=== PATIENT | male | born 1935 | race Caucasian/White ===

== ENCOUNTER 2018-11-01 22:41 | Inpatient (IN) ==
[2018-11-01] MEDS ORDERED: FUROSEMIDE 100 MG/10 ML VIAL IV STA (23:25)
[2018-11-02 00:07] LABS: Basophils % 0.3 % (0.0-0.8); Eosinophils # 0.2 10*3/uL (0.0-0.87); Eosinophils % 3.9 % (0.00-10.9); Hematocrit 31.8 VOL% (42.0-52.0); Hemoglobin 9.7 GM/DL (14.0-18.0); Immature Granulocytes % 0.5 %; Immature Granulocytes Absolute 0.03 #; Lymphocytes # 0.9 10*3/uL (1.4-4.0); Mean Corpuscular HGB Conc 30.5 GM/DL (32-36); Mean Corpuscular Hemoglobin 28 PG (27-34); Mean Corpuscular Volume 91.6 FL (87-102); Monocytes # 0.8 10*3/uL (0.11-0.8); Monocytes % 13.4 % (1.7-12.7); Neutrophils # 4.1 10*3/uL (1.4-7.4); Neutrophils % 66.9 % (38.7-73.9); Platelet Count 170 T/CUMM (130-400); Red Blood Count 3.47 MC/CUMM (3.8-5.5); Red Cell Distribution Width 14.7 % (9.3-17.3); White Blood Count 6.2 T/CUMM (4-12)
[2018-11-02 00:17] LABS: INR 1.2; PT Patient Result 12.7 SECS; Partial Thromboplastin Time 25.8 SECS (0-40)
[2018-11-02 00:25] LABS: Albumin 3.5 G/DL (3.4-5.0); Bilirubin,Total 0.7 MG/DL (0.2-1.0); Calcium 8.6 MG/DL (8.5-10.1); Osmolality,Calculated 278.5 MOS/KG (273-304); Potassium 3.8 MMOL/L (3.5-5.1); Total Protein 6.4 G/DL (6.4-8.3)
[2018-11-02] MEDS ORDERED: MAGNESIUM SULF RIDER 2 GM in PREMIX 1 EACH IV PRN (01:40)
[2018-11-02] MEDS ORDERED: ONDANSETRON 4 MG/2 ML VIAL IV PRN (01:40)
[2018-11-02] MEDS ORDERED: MAGNESIUM SULF RIDER 4 GM in PREMIX 1 EACH IV PRN (01:40)
[2018-11-02 06:02] LABS: Basophils % 0.4 % (0.0-0.8); Eosinophils # 0.2 10*3/uL (0.0-0.87); Hematocrit 30.5 VOL% (42.0-52.0); Hemoglobin 9.2 GM/DL (14.0-18.0); Immature Granulocytes % 0.4 %; Immature Granulocytes Absolute 0.02 #; Lymphocytes # 0.9 10*3/uL (1.4-4.0); Lymphocytes % 15.7 % (21.2-54.2); Mean Corpuscular HGB Conc 30.2 GM/DL (32-36); Mean Corpuscular Hemoglobin 28 PG (27-34); Monocytes # 0.7 10*3/uL (0.11-0.8); Monocytes % 13.2 % (1.7-12.7); Neutrophils # 3.6 10*3/uL (1.4-7.4); Neutrophils % 66.3 % (38.7-73.9); Platelet Count 185 T/CUMM (130-400); Red Blood Count 3.35 MC/CUMM (3.8-5.5); Red Cell Distribution Width 14.8 % (9.3-17.3); White Blood Count 5.5 T/CUMM (4-12)
[2018-11-02 06:28] LABS: Albumin 3.1 G/DL (3.4-5.0); Calcium 8.3 MG/DL (8.5-10.1); Osmolality,Calculated 279.4 MOS/KG (273-304); Potassium 3.4 MMOL/L (3.5-5.1)
[2018-11-02] MEDS: OLMESARTAN 20 MG TABLET PO SCH (08:29)
[2018-11-02] MEDS: chlordiazePOXIDE 25 MG CAPSULE PO SCH ×2 (08:29→21:36)
[2018-11-02] MEDS: MULTIVITAMIN (CENTRUM) TABLET PO SCH (08:29)
[2018-11-02] MEDS: MAGNESIUM CHLORIDE 64 MG TABLET PO SCH ×2 (08:29→21:36)
[2018-11-02] MEDS: TAMSULOSIN 0.4 MG CAPSULE PO SCH (08:30)
[2018-11-02] MEDS: DUTASTERIDE 0.5 MG CAPSULE PO SCH (08:30)
[2018-11-02] MEDS: PANTOPRAZOLE 40 MG TABLET PO SCH (08:30)
[2018-11-02] MEDS: ASCORBIC ACID 500 MG TABLET PO SCH ×2 (08:30→21:36)
[2018-11-02] MEDS: CARVEDILOL 12.5 MG TABLET PO SCH ×2 (08:30→16:43)
[2018-11-02] MEDS: ESCITALOPRAM 10 MG TABLET PO SCH (08:30)
[2018-11-02] MEDS: FUROSEMIDE 40 MG/4 ML VIAL IV SCH ×2 (08:30→16:43)
[2018-11-02] MEDS: CHOLECALCIFEROL 5,000 UNIT TABLET PO SCH (08:30)
[2018-11-02] MEDS ORDERED: POTASSIUM CHLORIDE 20 MEQ TABLET PO SCH (09:00)
[2018-11-02] MEDS ORDERED: APIXABAN 5 MG TABLET PO SCH (09:00)
[2018-11-02] MEDS ORDERED: CLOPIDOGREL 75 MG TABLET PO SCH (09:00)
[2018-11-02] MEDS: SPIRONOLACTONE 25 MG TABLET PO SCH (16:43)
[2018-11-02] MEDS: ATORVASTATIN 40 MG TABLET PO SCH (21:36)
[2018-11-03 07:47] LABS: Calcium 8.2 MG/DL (8.5-10.1); Osmolality,Calculated 277.4 MOS/KG (273-304); Potassium 3.4 MMOL/L (3.5-5.1)
[2018-11-03] MEDS: CHOLECALCIFEROL 5,000 UNIT TABLET PO SCH (10:03)
[2018-11-03] MEDS: SPIRONOLACTONE 25 MG TABLET PO SCH (10:03)
[2018-11-03] MEDS: OLMESARTAN 20 MG TABLET PO SCH (10:03)
[2018-11-03] MEDS: ESCITALOPRAM 10 MG TABLET PO SCH (10:03)
[2018-11-03] MEDS: FUROSEMIDE 40 MG/4 ML VIAL IV SCH ×2 (10:04→17:43)
[2018-11-03] MEDS: TAMSULOSIN 0.4 MG CAPSULE PO SCH (10:04)
[2018-11-03] MEDS: POTASSIUM CHLORIDE 20 MEQ TABLET PO PRN ×3 (10:04→17:43)
[2018-11-03] MEDS: MULTIVITAMIN (CENTRUM) TABLET PO SCH (10:04)
[2018-11-03] MEDS: CARVEDILOL 12.5 MG TABLET PO SCH ×2 (10:04→17:42)
[2018-11-03] MEDS: chlordiazePOXIDE 25 MG CAPSULE PO SCH ×2 (10:04→21:38)
[2018-11-03] MEDS: ASCORBIC ACID 500 MG TABLET PO SCH ×2 (10:04→21:39)
[2018-11-03] MEDS: PANTOPRAZOLE 40 MG TABLET PO SCH (10:04)
[2018-11-03] MEDS: MAGNESIUM CHLORIDE 64 MG TABLET PO SCH ×2 (10:04→21:38)
[2018-11-03] MEDS: DUTASTERIDE 0.5 MG CAPSULE PO SCH (10:04)
[2018-11-03 14:33] LABS: Apearance,Urine Slightly Hazy (Clear); Bilirubin,Urine Negative (Negative); Blood, Urine Large mg/dL (Negative); Glucose,Urine (UA) Negative (Negative); Ketones,Urine Negative (Negative); Mucus,Urine Occasional /LPF (Occasional); Nitrite,Urine Negative (Negative); Protein,Urine Negative; RBC,Urine 370 /HPF (0-4); Urine Color Straw (Yellow); Urine Specific Gravity 1.004 (1.001-1.035); Urine Urobilinogen < 2.0 EU/DL (0.2-1.0); WBC,Urine 5 /HPF (0-6)
[2018-11-03] MEDS ORDERED: diphenhydrAMINE CAP 25 MG CAPSULE PO SCH (20:00)
[2018-11-03] MEDS ORDERED: diphenhydrAMINE CAP 25 MG CAPSULE PO PRN ×2 (21:26→21:28)
[2018-11-03] MEDS: ATORVASTATIN 40 MG TABLET PO SCH (21:39)
[2018-11-04 05:05] LABS: Basophils % 0.4 % (0.0-0.8); Eosinophils # 0.3 10*3/uL (0.0-0.87); Eosinophils % 5.3 % (0.00-10.9); Hematocrit 29.4 VOL% (42.0-52.0); Hemoglobin 8.8 GM/DL (14.0-18.0); Immature Granulocytes % 0.5 %; Immature Granulocytes Absolute 0.03 #; Mean Corpuscular HGB Conc 29.9 GM/DL (32-36); Mean Corpuscular Hemoglobin 28 PG (27-34); Mean Corpuscular Volume 92.5 FL (87-102); Monocytes # 0.8 10*3/uL (0.11-0.8); Monocytes % 14.4 % (1.7-12.7); Neutrophils # 3.6 10*3/uL (1.4-7.4); Neutrophils % 62.4 % (38.7-73.9); Platelet Count 163 T/CUMM (130-400); Red Blood Count 3.18 MC/CUMM (3.8-5.5); Red Cell Distribution Width 14.6 % (9.3-17.3); White Blood Count 5.7 T/CUMM (4-12)
[2018-11-04 05:24] LABS: Calcium 7.9 MG/DL (8.5-10.1); Osmolality,Calculated 277.5 MOS/KG (273-304); Potassium 3.6 MMOL/L (3.5-5.1)
[2018-11-04 05:25] LABS: Calcium 8.1 MG/DL (8.5-10.1); Osmolality,Calculated 280.3 MOS/KG (273-304); Potassium 3.6 MMOL/L (3.5-5.1)
[2018-11-04] MEDS: ESCITALOPRAM 10 MG TABLET PO SCH (09:43)
[2018-11-04] MEDS: PANTOPRAZOLE 40 MG TABLET PO SCH (09:43)
[2018-11-04] MEDS: chlordiazePOXIDE 25 MG CAPSULE PO SCH ×2 (09:43→20:40)
[2018-11-04] MEDS: MULTIVITAMIN (CENTRUM) TABLET PO SCH (09:43)
[2018-11-04] MEDS: MAGNESIUM CHLORIDE 64 MG TABLET PO SCH ×2 (09:43→20:40)
[2018-11-04] MEDS: DUTASTERIDE 0.5 MG CAPSULE PO SCH (09:43)
[2018-11-04] MEDS: OLMESARTAN 20 MG TABLET PO SCH (09:43)
[2018-11-04] MEDS: ASCORBIC ACID 500 MG TABLET PO SCH ×2 (09:43→20:39)
[2018-11-04] MEDS: CHOLECALCIFEROL 5,000 UNIT TABLET PO SCH (09:43)
[2018-11-04] MEDS: SPIRONOLACTONE 25 MG TABLET PO SCH (09:43)
[2018-11-04] MEDS: TAMSULOSIN 0.4 MG CAPSULE PO SCH ×2 (09:44→20:39)
[2018-11-04] MEDS: CARVEDILOL 12.5 MG TABLET PO SCH ×2 (09:44→17:10)
[2018-11-04] MEDS: FUROSEMIDE 40 MG/4 ML VIAL IV SCH ×2 (09:44→17:11)
[2018-11-04] MEDS: NYSTATIN POWDER 15 GM BOTTLE TOP SCH ×2 (13:53→20:40)
[2018-11-04] MEDS: HYDROCORTISONE 1% CREAM 28 GM TUBE TOP PRN ×2 (13:53→20:40)
[2018-11-04] MEDS: ATORVASTATIN 40 MG TABLET PO SCH (20:39)
[2018-11-05 02:57] LABS: Basophils % 0.2 % (0.0-0.8); Eosinophils # 0.4 10*3/uL (0.0-0.87); Eosinophils % 6.3 % (0.00-10.9); Hematocrit 29.8 VOL% (42.0-52.0); Hemoglobin 8.9 GM/DL (14.0-18.0); Immature Granulocytes % 0.5 %; Immature Granulocytes Absolute 0.03 #; Lymphocytes # 0.9 10*3/uL (1.4-4.0); Lymphocytes % 15.2 % (21.2-54.2); Mean Corpuscular HGB Conc 29.9 GM/DL (32-36); Mean Corpuscular Hemoglobin 27 PG (27-34); Mean Corpuscular Volume 91.4 FL (87-102); Mean Platelet Volume 9.8 FL (9.6-12.0); Monocytes # 0.8 10*3/uL (0.11-0.8); Monocytes % 12.8 % (1.7-12.7); Neutrophils # 3.8 10*3/uL (1.4-7.4); Platelet Count 172 T/CUMM (130-400); Red Blood Count 3.26 MC/CUMM (3.8-5.5); Red Cell Distribution Width 14.5 % (9.3-17.3); White Blood Count 5.8 T/CUMM (4-12)
[2018-11-05 03:27] LABS: Calcium 8.2 MG/DL (8.5-10.1); Osmolality,Calculated 276.7 MOS/KG (273-304); Potassium 3.4 MMOL/L (3.5-5.1)
[2018-11-05] MEDS: ASCORBIC ACID 500 MG TABLET PO SCH ×2 (09:15→20:03)
[2018-11-05] MEDS: OLMESARTAN 20 MG TABLET PO SCH (09:16)
[2018-11-05] MEDS: SPIRONOLACTONE 25 MG TABLET PO SCH (09:16)
[2018-11-05] MEDS: CARVEDILOL 12.5 MG TABLET PO SCH ×2 (09:16→17:21)
[2018-11-05] MEDS: CHOLECALCIFEROL 5,000 UNIT TABLET PO SCH (09:16)
[2018-11-05] MEDS: PANTOPRAZOLE 40 MG TABLET PO SCH (09:16)
[2018-11-05] MEDS: NYSTATIN POWDER 15 GM BOTTLE TOP SCH ×2 (09:17→20:04)
[2018-11-05] MEDS: chlordiazePOXIDE 25 MG CAPSULE PO SCH ×2 (09:17→20:04)
[2018-11-05] MEDS: DUTASTERIDE 0.5 MG CAPSULE PO SCH (09:17)
[2018-11-05] MEDS: MAGNESIUM CHLORIDE 64 MG TABLET PO SCH ×2 (09:17→20:03)
[2018-11-05] MEDS: ESCITALOPRAM 10 MG TABLET PO SCH (09:17)
[2018-11-05] MEDS: TAMSULOSIN 0.4 MG CAPSULE PO SCH ×2 (09:17→20:03)
[2018-11-05] MEDS: MULTIVITAMIN (CENTRUM) TABLET PO SCH (09:17)
[2018-11-05] MEDS: FUROSEMIDE 40 MG/4 ML VIAL IV SCH (09:18)
[2018-11-05] MEDS: POTASSIUM CHLORIDE 20 MEQ TABLET PO PRN ×3 (09:24→17:22)
[2018-11-05] MEDS ORDERED: POTASSIUM CHLORIDE 20 MEQ/15 ML UDCUP PO ONE (11:39)
[2018-11-05] MEDS: FUROSEMIDE 40 MG TABLET PO SCH (17:23)
[2018-11-05] MEDS: ATORVASTATIN 40 MG TABLET PO SCH (20:04)
[2018-11-05] MEDS: HYDROCORTISONE 1% CREAM 28 GM TUBE TOP PRN (20:04)
[2018-11-06 05:52] LABS: Basophils % 0.4 % (0.0-0.8); Eosinophils # 0.4 10*3/uL (0.0-0.87); Eosinophils % 7.3 % (0.00-10.9); Hematocrit 31.2 VOL% (42.0-52.0); Hemoglobin 9.1 GM/DL (14.0-18.0); Immature Granulocytes % 0.4 %; Immature Granulocytes Absolute 0.02 #; Lymphocytes % 19.2 % (21.2-54.2); Mean Corpuscular HGB Conc 29.2 GM/DL (32-36); Mean Corpuscular Hemoglobin 27 PG (27-34); Mean Corpuscular Volume 91.8 FL (87-102); Monocytes # 0.7 10*3/uL (0.11-0.8); Monocytes % 12.7 % (1.7-12.7); Neutrophils # 3.2 10*3/uL (1.4-7.4); Platelet Count 170 T/CUMM (130-400); Red Cell Distribution Width 14.5 % (9.3-17.3); White Blood Count 5.4 T/CUMM (4-12)
[2018-11-06] MEDS: ACETAMINOPHEN 325 MG TABLET PO PRN (06:12)
[2018-11-06 06:17] LABS: Calcium 8.4 MG/DL (8.5-10.1); Osmolality,Calculated 279.4 MOS/KG (273-304); Potassium 3.7 MMOL/L (3.5-5.1)
[2018-11-06] MEDS: ASCORBIC ACID 500 MG TABLET PO SCH ×2 (10:35→20:18)
[2018-11-06] MEDS: chlordiazePOXIDE 25 MG CAPSULE PO SCH ×2 (10:35→20:24)
[2018-11-06] MEDS: MAGNESIUM CHLORIDE 64 MG TABLET PO SCH ×2 (10:35→20:18)
[2018-11-06] MEDS: CHOLECALCIFEROL 5,000 UNIT TABLET PO SCH (10:36)
[2018-11-06] MEDS: DUTASTERIDE 0.5 MG CAPSULE PO SCH (10:36)
[2018-11-06] MEDS: TAMSULOSIN 0.4 MG CAPSULE PO SCH ×2 (10:36→20:18)
[2018-11-06] MEDS: ESCITALOPRAM 10 MG TABLET PO SCH (10:36)
[2018-11-06] MEDS: MULTIVITAMIN (CENTRUM) TABLET PO SCH (10:37)
[2018-11-06] MEDS: FUROSEMIDE 40 MG TABLET PO SCH ×2 (10:37→15:52)
[2018-11-06] MEDS: PANTOPRAZOLE 40 MG TABLET PO SCH (10:37)
[2018-11-06] MEDS: SPIRONOLACTONE 25 MG TABLET PO SCH (10:37)
[2018-11-06] MEDS: NYSTATIN POWDER 15 GM BOTTLE TOP SCH ×2 (10:38→20:24)
[2018-11-06] MEDS: CARVEDILOL 12.5 MG TABLET PO SCH ×2 (10:38→16:50)
[2018-11-06] MEDS: OLMESARTAN 20 MG TABLET PO SCH (10:38)
[2018-11-06] MEDS: ATORVASTATIN 40 MG TABLET PO SCH (20:18)
[2018-11-07] MEDS: CARVEDILOL 12.5 MG TABLET PO SCH ×2 (08:52→17:27)
[2018-11-07] MEDS: SPIRONOLACTONE 25 MG TABLET PO SCH (08:57)
[2018-11-07] MEDS: OLMESARTAN 20 MG TABLET PO SCH (08:57)
[2018-11-07] MEDS: FUROSEMIDE 40 MG TABLET PO SCH ×2 (08:57→17:27)
[2018-11-07] MEDS: ASCORBIC ACID 500 MG TABLET PO SCH ×2 (08:57→21:10)
[2018-11-07] MEDS: MULTIVITAMIN (CENTRUM) TABLET PO SCH (08:57)
[2018-11-07] MEDS: CHOLECALCIFEROL 5,000 UNIT TABLET PO SCH (08:57)
[2018-11-07] MEDS: TAMSULOSIN 0.4 MG CAPSULE PO SCH ×2 (08:58→20:40)
[2018-11-07] MEDS: chlordiazePOXIDE 25 MG CAPSULE PO SCH ×2 (08:58→20:40)
[2018-11-07] MEDS: DUTASTERIDE 0.5 MG CAPSULE PO SCH (08:58)
[2018-11-07] MEDS: ESCITALOPRAM 10 MG TABLET PO SCH (08:58)
[2018-11-07] MEDS: MAGNESIUM CHLORIDE 64 MG TABLET PO SCH ×2 (08:58→21:10)
[2018-11-07] MEDS: PANTOPRAZOLE 40 MG TABLET PO SCH (10:38)
[2018-11-07] MEDS: NYSTATIN POWDER 15 GM BOTTLE TOP SCH ×2 (10:38→21:08)
[2018-11-07] MEDS: ASPIRIN EC 81 MG TABLET PO SCH (14:01)
[2018-11-07] MEDS: diphenhydrAMINE CAP 25 MG CAPSULE PO PRN (18:03)
[2018-11-07] MEDS: ATORVASTATIN 40 MG TABLET PO SCH (20:40)
[2018-11-08 06:11] LABS: Basophils % 0.4 % (0.0-0.8); Eosinophils # 0.3 10*3/uL (0.0-0.87); Eosinophils % 6.1 % (0.00-10.9); Hematocrit 30.1 VOL% (42.0-52.0); Hemoglobin 9.2 GM/DL (14.0-18.0); Immature Granulocytes % 0.6 %; Immature Granulocytes Absolute 0.03 #; Lymphocytes % 18.5 % (21.2-54.2); Mean Corpuscular HGB Conc 30.6 GM/DL (32-36); Mean Corpuscular Hemoglobin 28 PG (27-34); Mean Corpuscular Volume 90.9 FL (87-102); Mean Platelet Volume 10.2 FL (9.6-12.0); Monocytes # 0.7 10*3/uL (0.11-0.8); Monocytes % 13.5 % (1.7-12.7); Neutrophils # 3.3 10*3/uL (1.4-7.4); Neutrophils % 60.9 % (38.7-73.9); Platelet Count 154 T/CUMM (130-400); Red Blood Count 3.31 MC/CUMM (3.8-5.5); Red Cell Distribution Width 14.6 % (9.3-17.3); White Blood Count 5.4 T/CUMM (4-12)
[2018-11-08 06:38] LABS: Calcium 8.3 MG/DL (8.5-10.1); Osmolality,Calculated 280.4 MOS/KG (273-304); Potassium 3.7 MMOL/L (3.5-5.1)
[2018-11-08] MEDS: ASPIRIN EC 81 MG TABLET PO SCH (09:09)
[2018-11-08] MEDS: DUTASTERIDE 0.5 MG CAPSULE PO SCH (09:09)
[2018-11-08] MEDS: ESCITALOPRAM 10 MG TABLET PO SCH (09:09)
[2018-11-08] MEDS: TAMSULOSIN 0.4 MG CAPSULE PO SCH ×2 (09:09→20:14)
[2018-11-08] MEDS: ASCORBIC ACID 500 MG TABLET PO SCH ×2 (09:09→20:13)
[2018-11-08] MEDS: SPIRONOLACTONE 25 MG TABLET PO SCH (09:09)
[2018-11-08] MEDS: PANTOPRAZOLE 40 MG TABLET PO SCH (09:10)
[2018-11-08] MEDS: FUROSEMIDE 40 MG TABLET PO SCH ×2 (09:10→16:39)
[2018-11-08] MEDS: MAGNESIUM CHLORIDE 64 MG TABLET PO SCH ×2 (09:10→20:14)
[2018-11-08] MEDS: CHOLECALCIFEROL 5,000 UNIT TABLET PO SCH (09:10)
[2018-11-08] MEDS: chlordiazePOXIDE 25 MG CAPSULE PO SCH ×2 (09:10→20:13)
[2018-11-08] MEDS: CARVEDILOL 12.5 MG TABLET PO SCH ×2 (09:11→16:39)
[2018-11-08] MEDS: NYSTATIN POWDER 15 GM BOTTLE TOP SCH ×2 (09:11→20:14)
[2018-11-08] MEDS ORDERED: MAGNESIUM HYDROXIDE SUSP 30 ML UDCUP PO PRN (14:45)
[2018-11-08] MEDS: MULTIVITAMIN (CENTRUM) TABLET PO SCH (15:34)
[2018-11-08] MEDS: ATORVASTATIN 40 MG TABLET PO SCH (20:14)
[2018-11-08] MEDS: diphenhydrAMINE CAP 25 MG CAPSULE PO PRN (20:14)
[2018-11-09 05:49] LABS: Basophils % 0.6 % (0.0-0.8); Eosinophils # 0.3 10*3/uL (0.0-0.87); Eosinophils % 5.2 % (0.00-10.9); Hematocrit 31.3 VOL% (42.0-52.0); Hemoglobin 9.3 GM/DL (14.0-18.0); Immature Granulocytes % 0.6 %; Immature Granulocytes Absolute 0.03 #; Lymphocytes # 1.1 10*3/uL (1.4-4.0); Lymphocytes % 19.3 % (21.2-54.2); Mean Corpuscular HGB Conc 29.7 GM/DL (32-36); Mean Corpuscular Hemoglobin 27 PG (27-34); Mean Platelet Volume 9.5 FL (9.6-12.0); Monocytes # 0.7 10*3/uL (0.11-0.8); Monocytes % 13.6 % (1.7-12.7); Neutrophils # 3.3 10*3/uL (1.4-7.4); Neutrophils % 60.7 % (38.7-73.9); Platelet Count 144 T/CUMM (130-400); Red Blood Count 3.44 MC/CUMM (3.8-5.5); Red Cell Distribution Width 14.6 % (9.3-17.3); White Blood Count 5.4 T/CUMM (4-12)
[2018-11-09 06:09] LABS: Calcium 8.8 MG/DL (8.5-10.1); Osmolality,Calculated 277.5 MOS/KG (273-304)
[2018-11-09] MEDS: NYSTATIN POWDER 15 GM BOTTLE TOP SCH ×2 (09:00→20:41)
[2018-11-09] MEDS: FUROSEMIDE 40 MG TABLET PO SCH ×2 (09:52→17:22)
[2018-11-09] MEDS: ASCORBIC ACID 500 MG TABLET PO SCH ×2 (09:52→20:39)
[2018-11-09] MEDS: CHOLECALCIFEROL 5,000 UNIT TABLET PO SCH (09:52)
[2018-11-09] MEDS: CARVEDILOL 12.5 MG TABLET PO SCH ×2 (09:53→17:22)
[2018-11-09] MEDS: PANTOPRAZOLE 40 MG TABLET PO SCH (09:53)
[2018-11-09] MEDS: chlordiazePOXIDE 25 MG CAPSULE PO SCH ×2 (09:53→20:39)
[2018-11-09] MEDS: MULTIVITAMIN (CENTRUM) TABLET PO SCH (09:53)
[2018-11-09] MEDS: DUTASTERIDE 0.5 MG CAPSULE PO SCH (09:53)
[2018-11-09] MEDS: MAGNESIUM CHLORIDE 64 MG TABLET PO SCH ×2 (09:53→20:39)
[2018-11-09] MEDS: TAMSULOSIN 0.4 MG CAPSULE PO SCH ×2 (09:53→20:40)
[2018-11-09] MEDS: SPIRONOLACTONE 25 MG TABLET PO SCH (09:53)
[2018-11-09] MEDS: ESCITALOPRAM 10 MG TABLET PO SCH (09:59)
[2018-11-09] MEDS: diphenhydrAMINE CAP 25 MG CAPSULE PO PRN (20:39)
[2018-11-09] MEDS: ATORVASTATIN 40 MG TABLET PO SCH (20:39)
[2018-11-10 05:41] LABS: Basophils % 0.6 % (0.0-0.8); Eosinophils # 0.3 10*3/uL (0.0-0.87); Eosinophils % 6.1 % (0.00-10.9); Hematocrit 29.6 VOL% (42.0-52.0); Immature Granulocytes % 0.4 %; Immature Granulocytes Absolute 0.02 #; Lymphocytes % 19.1 % (21.2-54.2); Mean Corpuscular HGB Conc 30.4 GM/DL (32-36); Mean Corpuscular Hemoglobin 28 PG (27-34); Mean Corpuscular Volume 91.1 FL (87-102); Mean Platelet Volume 10.2 FL (9.6-12.0); Monocytes # 0.7 10*3/uL (0.11-0.8); Monocytes % 13.2 % (1.7-12.7); Neutrophils # 3.2 10*3/uL (1.4-7.4); Neutrophils % 60.6 % (38.7-73.9); Platelet Count 151 T/CUMM (130-400); Red Blood Count 3.25 MC/CUMM (3.8-5.5); Red Cell Distribution Width 14.5 % (9.3-17.3); White Blood Count 5.2 T/CUMM (4-12)
[2018-11-10 05:59] LABS: Calcium 8.4 MG/DL (8.5-10.1); Osmolality,Calculated 277.5 MOS/KG (273-304); Potassium 3.7 MMOL/L (3.5-5.1)
[2018-11-10] MEDS: DUTASTERIDE 0.5 MG CAPSULE PO SCH (09:45)
[2018-11-10] MEDS: CHOLECALCIFEROL 5,000 UNIT TABLET PO SCH (09:45)
[2018-11-10] MEDS: SPIRONOLACTONE 25 MG TABLET PO SCH (09:45)
[2018-11-10] MEDS: MULTIVITAMIN (CENTRUM) TABLET PO SCH (09:45)
[2018-11-10] MEDS: CARVEDILOL 12.5 MG TABLET PO SCH ×2 (09:45→17:12)
[2018-11-10] MEDS: POTASSIUM CHLORIDE 20 MEQ TABLET PO PRN (09:45)
[2018-11-10] MEDS: TAMSULOSIN 0.4 MG CAPSULE PO SCH ×2 (09:45→20:25)
[2018-11-10] MEDS: PANTOPRAZOLE 40 MG TABLET PO SCH (09:46)
[2018-11-10] MEDS: ASCORBIC ACID 500 MG TABLET PO SCH ×2 (09:46→20:25)
[2018-11-10] MEDS: FUROSEMIDE 40 MG TABLET PO SCH ×2 (09:46→17:12)
[2018-11-10] MEDS: ESCITALOPRAM 10 MG TABLET PO SCH (09:46)
[2018-11-10] MEDS: MAGNESIUM CHLORIDE 64 MG TABLET PO SCH ×2 (09:46→20:25)
[2018-11-10] MEDS: NYSTATIN POWDER 15 GM BOTTLE TOP SCH ×2 (13:50→20:25)
[2018-11-10] MEDS: ATORVASTATIN 40 MG TABLET PO SCH (20:25)
[2018-11-10] MEDS: diphenhydrAMINE CAP 25 MG CAPSULE PO PRN (21:41)
[2018-11-10] MEDS: chlordiazePOXIDE 25 MG CAPSULE PO SCH (21:41)
[2018-11-11] MEDS ORDERED: LIDOCAINE 2% TOP JELLY 20 ML VIAL INTRAURETH ONE (06:11)
[2018-11-11] MEDS: MAGNESIUM CHLORIDE 64 MG TABLET PO SCH ×2 (09:00→22:43)
[2018-11-11] MEDS: CHOLECALCIFEROL 5,000 UNIT TABLET PO SCH (09:01)
[2018-11-11] MEDS: PANTOPRAZOLE 40 MG TABLET PO SCH (09:01)
[2018-11-11] MEDS: TAMSULOSIN 0.4 MG CAPSULE PO SCH ×2 (09:01→22:42)
[2018-11-11] MEDS: chlordiazePOXIDE 25 MG CAPSULE PO SCH ×2 (09:01→22:42)
[2018-11-11] MEDS: ASCORBIC ACID 500 MG TABLET PO SCH ×2 (09:01→22:42)
[2018-11-11] MEDS: DUTASTERIDE 0.5 MG CAPSULE PO SCH (09:01)
[2018-11-11] MEDS: ESCITALOPRAM 10 MG TABLET PO SCH (09:01)
[2018-11-11] MEDS: MULTIVITAMIN (CENTRUM) TABLET PO SCH (09:01)
[2018-11-11] MEDS: FUROSEMIDE 40 MG TABLET PO SCH ×2 (09:02→17:01)
[2018-11-11] MEDS: SPIRONOLACTONE 25 MG TABLET PO SCH (09:02)
[2018-11-11] MEDS: CARVEDILOL 12.5 MG TABLET PO SCH ×2 (09:02→17:01)
[2018-11-11] MEDS: NYSTATIN POWDER 15 GM BOTTLE TOP SCH ×2 (09:15→22:43)
[2018-11-11] MEDS: ATORVASTATIN 40 MG TABLET PO SCH (22:43)
[2018-11-12 06:04] LABS: Basophils % 0.5 % (0.0-0.8); Eosinophils # 0.4 10*3/uL (0.0-0.87); Hematocrit 31.1 VOL% (42.0-52.0); Hemoglobin 9.5 GM/DL (14.0-18.0); Immature Granulocytes % 0.5 %; Immature Granulocytes Absolute 0.03 #; Lymphocytes % 16.7 % (21.2-54.2); Mean Corpuscular HGB Conc 30.5 GM/DL (32-36); Mean Corpuscular Hemoglobin 27 PG (27-34); Mean Corpuscular Volume 89.6 FL (87-102); Mean Platelet Volume 10.5 FL (9.6-12.0); Monocytes # 0.8 10*3/uL (0.11-0.8); Monocytes % 12.9 % (1.7-12.7); Neutrophils # 3.7 10*3/uL (1.4-7.4); Neutrophils % 63.4 % (38.7-73.9); Platelet Count 163 T/CUMM (130-400); Red Blood Count 3.47 MC/CUMM (3.8-5.5); Red Cell Distribution Width 14.6 % (9.3-17.3); White Blood Count 5.8 T/CUMM (4-12)
[2018-11-12 06:29] LABS: Calcium 8.5 MG/DL (8.5-10.1); Osmolality,Calculated 276.5 MOS/KG (273-304); Potassium 3.4 MMOL/L (3.5-5.1)
[2018-11-12] MEDS: diphenhydrAMINE CAP 25 MG CAPSULE PO PRN ×2 (08:32→21:49)
[2018-11-12] MEDS: ESCITALOPRAM 10 MG TABLET PO SCH (08:32)
[2018-11-12] MEDS: FUROSEMIDE 40 MG TABLET PO SCH ×2 (08:32→16:48)
[2018-11-12] MEDS: CHOLECALCIFEROL 5,000 UNIT TABLET PO SCH (08:32)
[2018-11-12] MEDS: DUTASTERIDE 0.5 MG CAPSULE PO SCH (08:32)
[2018-11-12] MEDS: PANTOPRAZOLE 40 MG TABLET PO SCH (08:33)
[2018-11-12] MEDS: CARVEDILOL 12.5 MG TABLET PO SCH ×2 (08:33→16:48)
[2018-11-12] MEDS: MAGNESIUM CHLORIDE 64 MG TABLET PO SCH ×2 (08:33→21:44)
[2018-11-12] MEDS: chlordiazePOXIDE 25 MG CAPSULE PO SCH ×2 (08:33→21:44)
[2018-11-12] MEDS: SPIRONOLACTONE 25 MG TABLET PO SCH (08:33)
[2018-11-12] MEDS: TAMSULOSIN 0.4 MG CAPSULE PO SCH ×2 (08:33→21:44)
[2018-11-12] MEDS: MULTIVITAMIN (CENTRUM) TABLET PO SCH (08:33)
[2018-11-12] MEDS: POTASSIUM CHLORIDE 20 MEQ TABLET PO PRN ×3 (08:33→13:34)
[2018-11-12] MEDS: ASCORBIC ACID 500 MG TABLET PO SCH ×2 (08:34→21:44)
[2018-11-12] MEDS: NYSTATIN POWDER 15 GM BOTTLE TOP SCH ×2 (08:34→21:50)
[2018-11-12] MEDS ORDERED: SKIN HEALING OINT (AQUAPHOR) 50 GM TUBE TOP PRN (09:51)
[2018-11-12] MEDS: POLYETHYLENE GLYCOL POWDER 17 GM PACK PO SCH (13:33)
[2018-11-12] MEDS: ATORVASTATIN 40 MG TABLET PO SCH (21:44)
[2018-11-13] MEDS: CARVEDILOL 12.5 MG TABLET PO SCH ×2 (08:00→19:33)
[2018-11-13] MEDS: FUROSEMIDE 40 MG TABLET PO SCH ×2 (08:00→19:33)
[2018-11-13] MEDS: CHOLECALCIFEROL 5,000 UNIT TABLET PO SCH (09:00)
[2018-11-13] MEDS: NYSTATIN POWDER 15 GM BOTTLE TOP SCH ×2 (09:00→21:50)
[2018-11-13] MEDS: ASCORBIC ACID 500 MG TABLET PO SCH ×2 (09:00→21:50)
[2018-11-13] MEDS: MAGNESIUM CHLORIDE 64 MG TABLET PO SCH ×2 (09:00→21:50)
[2018-11-13] MEDS: chlordiazePOXIDE 25 MG CAPSULE PO SCH ×2 (09:00→21:50)
[2018-11-13] MEDS: POLYETHYLENE GLYCOL POWDER 17 GM PACK PO SCH (09:00)
[2018-11-13] MEDS ORDERED: LIDOCAINE 2% TOP JELLY 20 ML VIAL INTRAURETH ONE (09:27)
[2018-11-13] MEDS ORDERED: NEOMYCIN/POLYMYXIN IRRIG SOLN 1 ML AMP BLADDERIRR ONE (09:28)
[2018-11-13] MEDS ORDERED: BUPIVACAINE SPINAL 0.75% 2 ML AMP SPINAL ONE (10:13)
[2018-11-13] MEDS ORDERED: LEVOFLOXACIN INJ 100 ML IV ONE (10:55)
[2018-11-13] MEDS ORDERED: SEVOFLURANE 1 UNIT/15 MINUTE INH ONE (12:39)
[2018-11-13] MEDS ORDERED: MIDAZOLAM 2 MG/2 ML VIAL ONE (12:39)
[2018-11-13] MEDS ORDERED: PROPOFOL 200 MG/20 ML VIAL IV ONE (12:39)
[2018-11-13] MEDS ORDERED: fentaNYL 100 MCG/2 ML VIAL ONE (12:39)
[2018-11-13] MEDS ORDERED: PHENYLEPHRINE 10 MG/1 ML VIAL IV ONE (12:40)
[2018-11-13] MEDS ORDERED: ETOMIDATE 40 MG/20 ML VIAL IV ONE (12:40)
[2018-11-13] MEDS ORDERED: PHENYLEPHRINE 1 MG/10 ML SYRINGE IV ONE (12:40)
[2018-11-13] MEDS ORDERED: HYDROmorphone 2 MG/1 ML VIAL ONE (12:59)
[2018-11-13] MEDS ORDERED: ONDANSETRON 4 MG/2 ML VIAL ONE (13:00)
[2018-11-13] MEDS ORDERED: ONDANSETRON 4 MG/2 ML VIAL IV PRN (13:08)
[2018-11-13] MEDS ORDERED: HYDROmorphone 2 MG/1 ML VIAL IV PRN (13:08)
[2018-11-13] MEDS: TAMSULOSIN 0.4 MG CAPSULE PO SCH ×2 (16:31→21:50)
[2018-11-13] MEDS: SPIRONOLACTONE 25 MG TABLET PO SCH (19:33)
[2018-11-13] MEDS: MULTIVITAMIN (CENTRUM) TABLET PO SCH (19:33)
[2018-11-13] MEDS: PANTOPRAZOLE 40 MG TABLET PO SCH (19:33)
[2018-11-13] MEDS: ESCITALOPRAM 10 MG TABLET PO SCH (19:33)
[2018-11-13] MEDS: DUTASTERIDE 0.5 MG CAPSULE PO SCH (19:33)
[2018-11-13] MEDS: ATORVASTATIN 40 MG TABLET PO SCH (21:50)
[2018-11-14] MEDS: ACETAMINOPHEN 325 MG TABLET PO PRN (00:46)
[2018-11-14 05:23] LABS: Basophils % 0.3 % (0.0-0.8); Eosinophils # 0.3 10*3/uL (0.0-0.87); Eosinophils % 4.8 % (0.00-10.9); Hematocrit 30.7 VOL% (42.0-52.0); Hemoglobin 9.4 GM/DL (14.0-18.0); Immature Granulocytes % 0.3 %; Immature Granulocytes Absolute 0.02 #; Lymphocytes # 1.1 10*3/uL (1.4-4.0); Lymphocytes % 18.7 % (21.2-54.2); Mean Corpuscular HGB Conc 30.6 GM/DL (32-36); Mean Corpuscular Hemoglobin 28 PG (27-34); Monocytes # 0.7 10*3/uL (0.11-0.8); Monocytes % 12.3 % (1.7-12.7); Neutrophils # 3.8 10*3/uL (1.4-7.4); Neutrophils % 63.6 % (38.7-73.9); Platelet Count 156 T/CUMM (130-400); Red Blood Count 3.41 MC/CUMM (3.8-5.5); Red Cell Distribution Width 14.6 % (9.3-17.3)
[2018-11-14 05:39] LABS: Calcium 8.2 MG/DL (8.5-10.1); Osmolality,Calculated 275.5 MOS/KG (273-304); Potassium 3.8 MMOL/L (3.5-5.1)
[2018-11-14] MEDS: FUROSEMIDE 40 MG TABLET PO SCH ×2 (09:30→16:54)
[2018-11-14] MEDS: ASCORBIC ACID 500 MG TABLET PO SCH ×2 (09:30→20:52)
[2018-11-14] MEDS: DUTASTERIDE 0.5 MG CAPSULE PO SCH (09:30)
[2018-11-14] MEDS: POLYETHYLENE GLYCOL POWDER 17 GM PACK PO SCH (09:30)
[2018-11-14] MEDS: PANTOPRAZOLE 40 MG TABLET PO SCH (09:31)
[2018-11-14] MEDS: MULTIVITAMIN (CENTRUM) TABLET PO SCH (09:31)
[2018-11-14] MEDS: ESCITALOPRAM 10 MG TABLET PO SCH (09:31)
[2018-11-14] MEDS: TAMSULOSIN 0.4 MG CAPSULE PO SCH ×2 (09:31→20:52)
[2018-11-14] MEDS: CHOLECALCIFEROL 5,000 UNIT TABLET PO SCH (09:31)
[2018-11-14] MEDS: chlordiazePOXIDE 25 MG CAPSULE PO SCH ×2 (09:31→20:52)
[2018-11-14] MEDS: SPIRONOLACTONE 25 MG TABLET PO SCH (09:32)
[2018-11-14] MEDS: POTASSIUM CHLORIDE 20 MEQ TABLET PO PRN (09:32)
[2018-11-14] MEDS: MAGNESIUM CHLORIDE 64 MG TABLET PO SCH ×2 (09:32→20:52)
[2018-11-14] MEDS: CARVEDILOL 12.5 MG TABLET PO SCH ×2 (09:32→16:54)
[2018-11-14] MEDS: NYSTATIN POWDER 15 GM BOTTLE TOP SCH ×2 (09:33→20:52)
[2018-11-14] MEDS: ATORVASTATIN 40 MG TABLET PO SCH (20:52)
[2018-11-14] MEDS: diphenhydrAMINE CAP 25 MG CAPSULE PO PRN (20:52)
[2018-11-15] MEDS: ASCORBIC ACID 500 MG TABLET PO SCH ×2 (08:43→20:59)
[2018-11-15] MEDS: MULTIVITAMIN (CENTRUM) TABLET PO SCH (08:43)
[2018-11-15] MEDS: SPIRONOLACTONE 25 MG TABLET PO SCH (08:43)
[2018-11-15] MEDS: chlordiazePOXIDE 25 MG CAPSULE PO SCH ×2 (08:43→20:59)
[2018-11-15] MEDS: POLYETHYLENE GLYCOL POWDER 17 GM PACK PO SCH (08:43)
[2018-11-15] MEDS: DUTASTERIDE 0.5 MG CAPSULE PO SCH (08:43)
[2018-11-15] MEDS: CHOLECALCIFEROL 5,000 UNIT TABLET PO SCH (08:43)
[2018-11-15] MEDS: PANTOPRAZOLE 40 MG TABLET PO SCH (08:43)
[2018-11-15] MEDS: TAMSULOSIN 0.4 MG CAPSULE PO SCH ×2 (08:43→20:59)
[2018-11-15] MEDS: ESCITALOPRAM 10 MG TABLET PO SCH (08:43)
[2018-11-15] MEDS: MAGNESIUM CHLORIDE 64 MG TABLET PO SCH ×2 (08:43→20:59)
[2018-11-15] MEDS: CARVEDILOL 12.5 MG TABLET PO SCH ×2 (08:44→17:10)
[2018-11-15] MEDS: FUROSEMIDE 40 MG TABLET PO SCH ×2 (08:44→17:10)
[2018-11-15] MEDS: NYSTATIN POWDER 15 GM BOTTLE TOP SCH ×2 (16:22→20:59)
[2018-11-15] MEDS: diphenhydrAMINE CAP 25 MG CAPSULE PO PRN (20:59)
[2018-11-15] MEDS: ATORVASTATIN 40 MG TABLET PO SCH (20:59)
[2018-11-16] MEDS: chlordiazePOXIDE 25 MG CAPSULE PO SCH ×2 (08:05→21:20)
[2018-11-16] MEDS: CHOLECALCIFEROL 5,000 UNIT TABLET PO SCH (08:05)
[2018-11-16] MEDS: POLYETHYLENE GLYCOL POWDER 17 GM PACK PO SCH (08:05)
[2018-11-16] MEDS: CARVEDILOL 12.5 MG TABLET PO SCH ×2 (08:05→17:40)
[2018-11-16] MEDS: TAMSULOSIN 0.4 MG CAPSULE PO SCH ×2 (08:05→21:20)
[2018-11-16] MEDS: MULTIVITAMIN (CENTRUM) TABLET PO SCH (08:05)
[2018-11-16] MEDS: DUTASTERIDE 0.5 MG CAPSULE PO SCH (08:05)
[2018-11-16] MEDS: SPIRONOLACTONE 25 MG TABLET PO SCH (08:05)
[2018-11-16] MEDS: ASCORBIC ACID 500 MG TABLET PO SCH ×2 (08:05→21:20)
[2018-11-16] MEDS: MAGNESIUM CHLORIDE 64 MG TABLET PO SCH ×2 (08:05→21:20)
[2018-11-16] MEDS: FUROSEMIDE 40 MG TABLET PO SCH ×2 (08:05→17:40)
[2018-11-16] MEDS: ESCITALOPRAM 10 MG TABLET PO SCH (08:06)
[2018-11-16] MEDS: PANTOPRAZOLE 40 MG TABLET PO SCH (08:06)
[2018-11-16] MEDS: NYSTATIN POWDER 15 GM BOTTLE TOP SCH ×2 (17:40→22:01)
[2018-11-16] MEDS: diphenhydrAMINE CAP 25 MG CAPSULE PO PRN (21:20)
[2018-11-16] MEDS: ATORVASTATIN 40 MG TABLET PO SCH (21:20)
[2018-11-17] MEDS: chlordiazePOXIDE 25 MG CAPSULE PO SCH (08:00)
[2018-11-17] MEDS: ESCITALOPRAM 10 MG TABLET PO SCH (08:00)
[2018-11-17] MEDS: MAGNESIUM CHLORIDE 64 MG TABLET PO SCH (08:00)
[2018-11-17] MEDS: CHOLECALCIFEROL 5,000 UNIT TABLET PO SCH (08:00)
[2018-11-17] MEDS: CARVEDILOL 12.5 MG TABLET PO SCH (08:01)
[2018-11-17] MEDS: FUROSEMIDE 40 MG TABLET PO SCH (08:01)
[2018-11-17] MEDS: NYSTATIN POWDER 15 GM BOTTLE TOP SCH (08:01)
[2018-11-17] MEDS: MULTIVITAMIN (CENTRUM) TABLET PO SCH (08:01)
[2018-11-17] MEDS: POLYETHYLENE GLYCOL POWDER 17 GM PACK PO SCH (08:01)
[2018-11-17] MEDS: ASCORBIC ACID 500 MG TABLET PO SCH (08:01)
[2018-11-17] MEDS: SPIRONOLACTONE 25 MG TABLET PO SCH (08:01)
[2018-11-17] MEDS: TAMSULOSIN 0.4 MG CAPSULE PO SCH (08:01)
[2018-11-17] MEDS: DUTASTERIDE 0.5 MG CAPSULE PO SCH (08:01)
[2018-11-17] MEDS: PANTOPRAZOLE 40 MG TABLET PO SCH (08:01)
[2018-11-17 12:41] VITALS: BP 106/61
== END 2018-11-17 13:49 | disposition home health service (06) | DRG 989 ==
LOC: N.ED 22:41 → N.EDINP 11-02 01:39 → SUATTDRO 11-02 01:39 → N.5E 11-02 02:47
PROVIDERS: ADMIT Internal Medicine; ATTEND Internal Medicine

== ENCOUNTER 2020-09-05 16:09 | Inpatient (IN) ==
[2020-09-05] MEDS ORDERED: ACETAMINOPHEN 500 MG TABLET PO STA (16:43)
[2020-09-05 17:24] LABS: Basophils % 0.3 % (0.0-0.8); Eosinophils % 1.3 % (0.00-10.9); Hematocrit 36.4 VOL% (42.0-52.0); Hemoglobin 12.4 GM/DL (14.0-18.0); Immature Granulocytes % 0.6 %; Immature Granulocytes Absolute 0.02 #; Lymphocytes # 0.7 10*3/uL (1.4-4.0); Lymphocytes % 22.8 % (21.2-54.2); Mean Corpuscular HGB Conc 34.1 GM/DL (32-36); Mean Corpuscular Volume 95.3 FL (87-102); Mean Platelet Volume 9.4 FL (9.6-12.0); Platelet Count 115 T/CUMM (130-400); Red Blood Count 3.82 MC/CUMM (3.8-5.5); Red Cell Distribution Width 13.9 % (9.3-17.3); White Blood Count 3.1 T/CUMM (4-12)
[2020-09-05 17:41] LABS: Albumin 3.2 G/DL (3.4-5.0); Bilirubin,Total 0.8 MG/DL (0.2-1.0); Calcium 8.2 MG/DL (8.5-10.1); Ferritin 187.2 ng/ml (26-388); Osmolality,Calculated 271.2 MOS/KG (273-304)
[2020-09-05 18:30] LABS: Bilirubin,Urine Negative (Negative); Blood, Urine Negative (Negative); Glucose,Urine (UA) Negative (Negative); Ketones,Urine Negative (Negative); Nitrite,Urine Negative (Negative); Protein,Urine Negative; RBC,Urine 4 /HPF (0-4); Squamous Epithelial Cell,Urine Occasional /HPF (0-10); Urine Appearance CLEAR (Clear); Urine Color Yellow (Yellow); Urine Specific Gravity 1.019 (1.001-1.035); WBC,Urine 1 /HPF (0-6)
[2020-09-05] MEDS ORDERED: ACETAMINOPHEN 325 MG TABLET PO PRN (18:48)
[2020-09-05] MEDS ORDERED: DEXTROSE 50% 25 GM/50 ML VIAL IV PRN (18:48)
[2020-09-05] MEDS ORDERED: ONDANSETRON 4 MG/2 ML VIAL IV PRN (18:48)
[2020-09-05] MEDS ORDERED: GLUCAGON 1 MG VIAL IM PRN (18:48)
[2020-09-05 20:39] LABS: Band Neutrophils 13 % (0-10); Eosinophils 2 % (0-10); Lymphocytes 21 % (20-55); Segmented Neutrophils 50 % (50-85); Total Cells Counted 100
[2020-09-05 20:40] LABS: Macrocytosis Slight; Platelet Estimate Adequate
[2020-09-05] MEDS: cefTRIAXone 1,000 MG in SYRINGE 1 EACH IV SCH (22:21)
[2020-09-05] MEDS: guaiFENesin/DM ER 600-30 MG TABLET PO SCH (22:21)
[2020-09-05] MEDS: DEXAMETHASONE 4 MG/1 ML VIAL IV SCH (22:21)
[2020-09-05] MEDS: SODIUM CHLORIDE 0.9% 1,000 ML IV SCH (22:23)
[2020-09-05] MEDS: HEPARIN 5,000 UNIT/1 ML VIAL SUBCUT SCH (22:24)
[2020-09-05] MEDS: AZITHROMYCIN INJ 500 MG in SODIUM CHLORIDE 0.9% 250 ML IV SCH (22:30)
[2020-09-06 06:40] LABS: Hematocrit 36.1 VOL% (42.0-52.0); Hemoglobin 12.2 GM/DL (14.0-18.0); Immature Granulocytes % 0.6 %; Immature Granulocytes Absolute 0.01 #; Lymphocytes # 0.4 10*3/uL (1.4-4.0); Lymphocytes % 23.6 % (21.2-54.2); Mean Corpuscular HGB Conc 33.8 GM/DL (32-36); Mean Platelet Volume 9.9 FL (9.6-12.0); Monocytes % 10.3 % (1.7-12.7); Neutrophils % 65.5 % (38.7-73.9); Platelet Count 103 T/CUMM (130-400); Red Cell Distribution Width 13.7 % (9.3-17.3); White Blood Count 1.7 T/CUMM (4-12)
[2020-09-06 07:00] LABS: Calcium 7.9 MG/DL (8.5-10.1); Osmolality,Calculated 276.8 MOS/KG (273-304)
[2020-09-06] MEDS: FAMOTIDINE 20 MG TABLET PO SCH ×2 (09:50→20:49)
[2020-09-06] MEDS: PANTOPRAZOLE 40 MG TABLET PO SCH (09:50)
[2020-09-06] MEDS: ZINC GLUCONATE 50 MG TABLET PO SCH (09:50)
[2020-09-06] MEDS: CETIRIZINE 10 MG TABLET PO SCH (09:50)
[2020-09-06] MEDS: HEPARIN 5,000 UNIT/1 ML VIAL SUBCUT SCH ×2 (09:50→20:51)
[2020-09-06] MEDS: CHOLECALCIFEROL 1,000 UNIT TABLET PO SCH (09:50)
[2020-09-06] MEDS: ASCORBIC ACID 500 MG TABLET PO SCH (09:50)
[2020-09-06] MEDS: guaiFENesin/DM ER 600-30 MG TABLET PO SCH ×2 (09:50→20:49)
[2020-09-06] MEDS: DEXAMETHASONE 4 MG/1 ML VIAL IV SCH ×2 (10:34→20:49)
[2020-09-06] MEDS: SODIUM CHLORIDE 0.9% 1,000 ML IV SCH ×2 (10:34→15:47)
[2020-09-06 11:43] LABS: Anisocytosis 1+; Band Neutrophils 19 % (0-10); Lymphocytes 21 % (20-55); Platelet Estimate Adequate; Segmented Neutrophils 53 % (50-85); Total Cells Counted 100
[2020-09-06 11:44] LABS: Macrocytosis Slight; Poikilocytosis Slight
[2020-09-06] MEDS ORDERED: REMDESIVIR 200 MG in SODIUM CHLORIDE 0.9% 210 ML IV ONE (20:00)
[2020-09-06] MEDS: cefTRIAXone 1,000 MG in SYRINGE 1 EACH IV SCH (20:49)
[2020-09-06] MEDS: AZITHROMYCIN INJ 500 MG in SODIUM CHLORIDE 0.9% 250 ML IV SCH (20:50)
[2020-09-07] MEDS: SODIUM CHLORIDE 0.9% 1,000 ML IV SCH ×2 (00:13→12:03)
[2020-09-07 07:08] LABS: Basophils % 0.3 % (0.0-0.8); Immature Granulocytes % 0.6 %; Immature Granulocytes Absolute 0.02 #; Lymphocytes # 0.4 10*3/uL (1.4-4.0); Lymphocytes % 12.9 % (21.2-54.2); Mean Corpuscular HGB Conc 34.5 GM/DL (32-36); Mean Corpuscular Volume 93.6 FL (87-102); Mean Platelet Volume 9.7 FL (9.6-12.0); Neutrophils % 76.2 % (38.7-73.9); Red Blood Count 3.93 MC/CUMM (3.8-5.5); Red Cell Distribution Width 13.6 % (9.3-17.3)
[2020-09-07 07:11] LABS: Hematocrit 36.8 VOL% (42.0-52.0); Hemoglobin 12.7 GM/DL (14.0-18.0); Platelet Count 111 T/CUMM (130-400); White Blood Count 3.1 T/CUMM (4-12)
[2020-09-07 07:21] LABS: Calcium 7.9 MG/DL (8.5-10.1); Ferritin 283.9 ng/ml (26-388); Osmolality,Calculated 278.7 MOS/KG (273-304)
[2020-09-07] MEDS ORDERED: REMDESIVIR 100 MG in SODIUM CHLORIDE 0.9% 230 ML IV SCH (09:00)
[2020-09-07] MEDS: FAMOTIDINE 20 MG TABLET PO SCH ×2 (09:24→20:19)
[2020-09-07] MEDS: DEXAMETHASONE 4 MG/1 ML VIAL IV SCH ×2 (09:24→20:18)
[2020-09-07] MEDS: HEPARIN 5,000 UNIT/1 ML VIAL SUBCUT SCH ×2 (09:24→20:19)
[2020-09-07] MEDS: guaiFENesin/DM ER 600-30 MG TABLET PO SCH ×2 (09:25→20:19)
[2020-09-07] MEDS: ASCORBIC ACID 500 MG TABLET PO SCH (09:25)
[2020-09-07] MEDS: CHOLECALCIFEROL 1,000 UNIT TABLET PO SCH (09:25)
[2020-09-07] MEDS: ESCITALOPRAM 10 MG TABLET PO SCH (09:25)
[2020-09-07] MEDS: POTASSIUM CHLORIDE 10 MEQ TABLET PO SCH (09:25)
[2020-09-07] MEDS: FUROSEMIDE 40 MG TABLET PO SCH (09:25)
[2020-09-07] MEDS: ZINC GLUCONATE 50 MG TABLET PO SCH (09:26)
[2020-09-07] MEDS: PANTOPRAZOLE 40 MG TABLET PO SCH (09:26)
[2020-09-07] MEDS: carvediloL 12.5 MG TABLET PO SCH ×2 (09:26→20:18)
[2020-09-07] MEDS: MAGNESIUM CHLORIDE 64 MG TABLET PO SCH ×2 (09:26→20:19)
[2020-09-07] MEDS: TAMSULOSIN 0.4 MG CAPSULE PO SCH (09:26)
[2020-09-07] MEDS: CETIRIZINE 10 MG TABLET PO SCH (09:26)
[2020-09-07] MEDS ORDERED: REMDESIVIR 200 MG in SODIUM CHLORIDE 0.9% 210 ML IV ONE (09:30)
[2020-09-07] MEDS: REMDESIVIR 100 MG in SODIUM CHLORIDE 0.9% 100 ML IV SCH (11:40)
[2020-09-07] MEDS ORDERED: SODIUM CHLORIDE 0.9% 1,000 ML IV PRN (14:14)
[2020-09-07] MEDS: cefTRIAXone 1,000 MG in SYRINGE 1 EACH IV SCH (18:10)
[2020-09-07] MEDS: AZITHROMYCIN 250 MG TABLET PO SCH (20:18)
[2020-09-07] MEDS: ATORVASTATIN 40 MG TABLET PO SCH (20:18)
[2020-09-08 06:37] LABS: Calcium 7.6 MG/DL (8.5-10.1)
[2020-09-08 06:45] LABS: Ferritin 243.1 ng/ml (26-388)
[2020-09-08] MEDS ORDERED: REMDESIVIR 100 MG in SODIUM CHLORIDE 0.9% 100 ML IV SCH (09:00)
[2020-09-08] MEDS: MAGNESIUM CHLORIDE 64 MG TABLET PO SCH ×2 (10:10→21:49)
[2020-09-08] MEDS: POTASSIUM CHLORIDE 10 MEQ TABLET PO SCH (10:10)
[2020-09-08] MEDS: DEXAMETHASONE 4 MG/1 ML VIAL IV SCH ×2 (10:10→21:50)
[2020-09-08] MEDS: HEPARIN 5,000 UNIT/1 ML VIAL SUBCUT SCH ×2 (10:10→21:52)
[2020-09-08] MEDS: carvediloL 12.5 MG TABLET PO SCH ×2 (10:11→21:49)
[2020-09-08] MEDS: ASCORBIC ACID 500 MG TABLET PO SCH (10:11)
[2020-09-08] MEDS: ZINC GLUCONATE 50 MG TABLET PO SCH (10:11)
[2020-09-08] MEDS: FUROSEMIDE 40 MG TABLET PO SCH (10:11)
[2020-09-08] MEDS: guaiFENesin/DM ER 600-30 MG TABLET PO SCH ×2 (10:11→21:49)
[2020-09-08] MEDS: TAMSULOSIN 0.4 MG CAPSULE PO SCH (10:12)
[2020-09-08] MEDS: FAMOTIDINE 20 MG TABLET PO SCH ×2 (10:12→22:00)
[2020-09-08] MEDS: PANTOPRAZOLE 40 MG TABLET PO SCH (10:12)
[2020-09-08] MEDS: CETIRIZINE 10 MG TABLET PO SCH (10:12)
[2020-09-08] MEDS: CHOLECALCIFEROL 1,000 UNIT TABLET PO SCH (10:12)
[2020-09-08] MEDS: ESCITALOPRAM 10 MG TABLET PO SCH (10:12)
[2020-09-08] MEDS: REMDESIVIR 100 MG in SODIUM CHLORIDE 0.9% 100 ML IV SCH (10:13)
[2020-09-08] MEDS: AZITHROMYCIN 250 MG TABLET PO SCH (21:49)
[2020-09-08] MEDS: cefTRIAXone 1,000 MG in SYRINGE 1 EACH IV SCH (21:49)
[2020-09-08] MEDS: ATORVASTATIN 40 MG TABLET PO SCH (22:00)
[2020-09-09] MEDS: PANTOPRAZOLE 40 MG TABLET PO SCH (08:37)
[2020-09-09] MEDS: DEXAMETHASONE 4 MG/1 ML VIAL IV SCH ×2 (08:37→22:04)
[2020-09-09] MEDS: HEPARIN 5,000 UNIT/1 ML VIAL SUBCUT SCH ×2 (08:37→22:04)
[2020-09-09] MEDS: carvediloL 12.5 MG TABLET PO SCH ×2 (08:37→22:03)
[2020-09-09] MEDS: MAGNESIUM CHLORIDE 64 MG TABLET PO SCH ×2 (08:37→22:04)
[2020-09-09] MEDS: CHOLECALCIFEROL 1,000 UNIT TABLET PO SCH (08:37)
[2020-09-09] MEDS: FAMOTIDINE 20 MG TABLET PO SCH ×2 (08:37→22:04)
[2020-09-09] MEDS: CETIRIZINE 10 MG TABLET PO SCH (08:37)
[2020-09-09] MEDS: ASCORBIC ACID 500 MG TABLET PO SCH (08:37)
[2020-09-09] MEDS: ESCITALOPRAM 10 MG TABLET PO SCH (08:37)
[2020-09-09] MEDS: TAMSULOSIN 0.4 MG CAPSULE PO SCH (08:37)
[2020-09-09] MEDS: POTASSIUM CHLORIDE 10 MEQ TABLET PO SCH (08:37)
[2020-09-09] MEDS: ZINC GLUCONATE 50 MG TABLET PO SCH (08:37)
[2020-09-09] MEDS: FUROSEMIDE 40 MG TABLET PO SCH (08:37)
[2020-09-09] MEDS: guaiFENesin/DM ER 600-30 MG TABLET PO SCH ×2 (08:37→22:01)
[2020-09-09] MEDS: REMDESIVIR 100 MG in SODIUM CHLORIDE 0.9% 100 ML IV SCH (11:22)
[2020-09-09] MEDS: cefTRIAXone 1,000 MG in SYRINGE 1 EACH IV SCH (18:06)
[2020-09-09] MEDS: AZITHROMYCIN 250 MG TABLET PO SCH (22:02)
[2020-09-09] MEDS: ATORVASTATIN 40 MG TABLET PO SCH (22:03)
[2020-09-10 05:12] LABS: Basophils % 0.2 % (0.0-0.8); Hematocrit 39.3 VOL% (42.0-52.0); Hemoglobin 13.1 GM/DL (14.0-18.0); Immature Granulocytes Absolute 0.05 #; Lymphocytes # 0.5 10*3/uL (1.4-4.0); Lymphocytes % 10.2 % (21.2-54.2); Mean Corpuscular HGB Conc 33.3 GM/DL (32-36); Mean Corpuscular Volume 95.2 FL (87-102); Mean Platelet Volume 10.2 FL (9.6-12.0); Monocytes % 8.6 % (1.7-12.7); Platelet Count 158 T/CUMM (130-400); Red Blood Count 4.13 MC/CUMM (3.8-5.5); Red Cell Distribution Width 13.5 % (9.3-17.3); White Blood Count 4.8 T/CUMM (4-12)
[2020-09-10 05:56] LABS: Calcium 7.7 MG/DL (8.5-10.1); Osmolality,Calculated 279.8 MOS/KG (273-304)
[2020-09-10] MEDS: POTASSIUM CHLORIDE 10 MEQ TABLET PO SCH (09:58)
[2020-09-10] MEDS: MAGNESIUM CHLORIDE 64 MG TABLET PO SCH (09:59)
[2020-09-10] MEDS: ESCITALOPRAM 10 MG TABLET PO SCH (09:59)
[2020-09-10] MEDS: ASCORBIC ACID 500 MG TABLET PO SCH (09:59)
[2020-09-10] MEDS: guaiFENesin/DM ER 600-30 MG TABLET PO SCH (10:00)
[2020-09-10] MEDS: FAMOTIDINE 20 MG TABLET PO SCH (10:00)
[2020-09-10] MEDS: CHOLECALCIFEROL 1,000 UNIT TABLET PO SCH (10:00)
[2020-09-10] MEDS: PANTOPRAZOLE 40 MG TABLET PO SCH (10:00)
[2020-09-10] MEDS: carvediloL 12.5 MG TABLET PO SCH (10:00)
[2020-09-10] MEDS: FUROSEMIDE 40 MG TABLET PO SCH (10:00)
[2020-09-10] MEDS: DEXAMETHASONE 4 MG/1 ML VIAL IV SCH (10:01)
[2020-09-10] MEDS: TAMSULOSIN 0.4 MG CAPSULE PO SCH (10:01)
[2020-09-10] MEDS: HEPARIN 5,000 UNIT/1 ML VIAL SUBCUT SCH (10:02)
[2020-09-10] MEDS: ZINC GLUCONATE 50 MG TABLET PO SCH (10:50)
[2020-09-10] MEDS: CETIRIZINE 10 MG TABLET PO SCH (10:50)
[2020-09-10] MEDS: REMDESIVIR 100 MG in SODIUM CHLORIDE 0.9% 100 ML IV SCH (11:13)
[2020-09-10 12:52] VITALS: BP 133/79
== END 2020-09-10 14:15 | disposition home health service (06) | DRG 177 ==
LOC: N.ED 16:09 → N.EDINP 18:48 → N.2E 20:41
PROVIDERS: ADMIT Family Medicine; ATTEND Family Medicine

== ENCOUNTER 2022-01-31 09:37 | Inpatient (IN) ==
[2022-01-31 10:30] LABS: Basophils % 0.4 % (0.0-0.8); Eosinophils # 0.2 10*3/uL (0.0-0.87); Eosinophils % 4.2 % (0.00-10.9); Hematocrit 38.1 VOL% (42.0-52.0); Hemoglobin 11.4 GM/DL (14.0-18.0); Immature Granulocytes % 0.4 %; Immature Granulocytes Absolute 0.02 #; Lymphocytes # 0.5 10*3/uL (1.4-4.0); Mean Corpuscular HGB Conc 29.9 GM/DL (32-36); Mean Platelet Volume 10.2 FL (9.6-12.0); Monocytes # 0.4 10*3/uL (0.11-0.8); Monocytes % 8.2 % (1.7-12.7); Neutrophils % 77.8 % (38.7-73.9); Platelet Count 146 T/CUMM (130-400); Red Blood Count 3.85 MC/CUMM (3.8-5.5); White Blood Count 5.2 T/CUMM (4-12)
[2022-01-31 10:40] LABS: Calcium 8.5 MG/DL (8.5-10.1); Osmolality,Calculated 280.3 MOS/KG (273-304); Potassium 3.5 MMOL/L (3.5-5.1)
[2022-01-31] MEDS ORDERED: FUROSEMIDE 100 MG/10 ML VIAL IV STA (12:24)
[2022-01-31 13:49] LABS: Albumin 3.1 G/DL (3.4-5.0); Bilirubin,Total 0.9 MG/DL (0.20-1.00); Calcium 8.6 MG/DL (8.5-10.1); Osmolality,Calculated 274.7 MOS/KG (273-304); Potassium 3.5 MMOL/L (3.5-5.1); Total Protein 6.4 G/DL (6.4-8.2)
[2022-01-31 14:29] LABS: RBC,Urine 486 /HPF (0-4); Urine Appearance Clear (Clear); Urine Color Red (Yellow); Urine pH 7.5 (4.5-8.0)
[2022-01-31 14:30] LABS: Bilirubin,Urine Negative (Negative); Blood, Urine Large mg/dL (Negative); Glucose,Urine (UA) Negative (Negative); Ketones,Urine Negative (Negative); Nitrite,Urine Negative (Negative); Protein,Urine Negative (Negative); Urine Urobilinogen 0.2 eU/dL (<2.0)
[2022-01-31] MEDS ORDERED: DOCUSATE SODIUM 100 MG CAPSULE PO PRN (14:43)
[2022-01-31] MEDS ORDERED: GLUCAGON 1 MG VIAL IM PRN (14:43)
[2022-01-31] MEDS ORDERED: ACETAMINOPHEN 325 MG TABLET PO PRN (14:43)
[2022-01-31] MEDS ORDERED: ONDANSETRON 4 MG/2 ML VIAL IV PRN (14:43)
[2022-01-31] MEDS ORDERED: hydrALAZINE 20 MG/1 ML VIAL IV PRN (14:43)
[2022-01-31] MEDS ORDERED: DEXTROSE 10% 250 ML BAG IV PRN (15:16)
[2022-01-31 15:19] LABS: Thyroid Stimulating Hormone 1.83 uIU/ml (0.358-3.74)
[2022-01-31 18:50] LABS: Hematocrit 37.6 VOL% (42.0-52.0); Hemoglobin 11.5 GM/DL (14.0-18.0)
[2022-01-31] MEDS: carvediloL 12.5 MG TABLET PO SCH (19:52)
[2022-01-31] MEDS: chlordiazePOXIDE 25 MG CAPSULE PO SCH (21:35)
[2022-01-31] MEDS: FUROSEMIDE 40 MG/4 ML VIAL IV SCH (21:35)
[2022-01-31] MEDS: ASCORBIC ACID 500 MG TABLET PO SCH (21:35)
[2022-01-31] MEDS: MAGNESIUM CHLORIDE 64 MG TABLET PO SCH (21:35)
[2022-01-31] MEDS: SILODOSIN 8 MG CAPSULE PO SCH (21:36)
[2022-01-31] MEDS: ATORVASTATIN 40 MG TABLET PO SCH (21:36)
[2022-02-01 00:43] LABS: Hematocrit 37.2 VOL% (42.0-52.0); Hemoglobin 11.1 GM/DL (14.0-18.0)
[2022-02-01 05:38] LABS: Basophils % 0.4 % (0.0-0.8); Eosinophils # 0.2 10*3/uL (0.0-0.87); Eosinophils % 3.9 % (0.00-10.9); Hematocrit 36.2 VOL% (42.0-52.0); Hemoglobin 10.8 GM/DL (14.0-18.0); Immature Granulocytes % 0.4 %; Immature Granulocytes Absolute 0.02 #; Lymphocytes # 0.5 10*3/uL (1.4-4.0); Mean Corpuscular HGB Conc 29.8 GM/DL (32-36); Mean Corpuscular Volume 98.1 FL (87-102); Mean Platelet Volume 9.4 FL (9.6-12.0); Monocytes # 0.7 10*3/uL (0.11-0.8); Monocytes % 12.3 % (1.7-12.7); Platelet Count 134 T/CUMM (130-400); Red Blood Count 3.69 MC/CUMM (3.8-5.5); Red Cell Distribution Width 15.1 % (9.3-17.3); White Blood Count 5.7 T/CUMM (4-12)
[2022-02-01 06:02] LABS: Albumin 2.9 G/DL (3.4-5.0); Calcium 8.5 MG/DL (8.5-10.1); Osmolality,Calculated 277.5 MOS/KG (273-304); Risk Ratio 1.95; VLDL Cholesterol 8.4 MG/DL
[2022-02-01] MEDS ORDERED: POTASSIUM CHLORIDE 20 MEQ TABLET PO ONE (08:11)
[2022-02-01 08:15] LABS: Hematocrit 38.8 VOL% (42.0-52.0); Hemoglobin 11.6 GM/DL (14.0-18.0)
[2022-02-01] MEDS: ESCITALOPRAM 10 MG TABLET PO SCH (08:21)
[2022-02-01] MEDS: CHOLECALCIFEROL 5,000 UNIT TABLET PO SCH (08:21)
[2022-02-01] MEDS: PANTOPRAZOLE 40 MG TABLET PO SCH (08:22)
[2022-02-01] MEDS: ASCORBIC ACID 500 MG TABLET PO SCH ×2 (08:22→21:24)
[2022-02-01] MEDS: MAGNESIUM CHLORIDE 64 MG TABLET PO SCH ×2 (08:22→21:24)
[2022-02-01] MEDS: chlordiazePOXIDE 25 MG CAPSULE PO SCH ×2 (08:22→21:24)
[2022-02-01] MEDS: carvediloL 12.5 MG TABLET PO SCH ×2 (08:22→16:03)
[2022-02-01] MEDS: FUROSEMIDE 40 MG/4 ML VIAL IV SCH ×2 (08:23→16:03)
[2022-02-01] MEDS ORDERED: CETIRIZINE 10 MG TABLET PO SCH (09:00)
[2022-02-01] MEDS ORDERED: POTASSIUM CHLORIDE 10 MEQ TABLET PO SCH (09:00)
[2022-02-01] MEDS: SPIRONOLACTONE 25 MG TABLET PO SCH (13:56)
[2022-02-01] MEDS: ATORVASTATIN 40 MG TABLET PO SCH (21:24)
[2022-02-01] MEDS: DUTASTERIDE 0.5 MG CAPSULE PO SCH (21:32)
[2022-02-01] MEDS: SILODOSIN 8 MG CAPSULE PO SCH (23:10)
[2022-02-02] MEDS: FUROSEMIDE 40 MG/4 ML VIAL IV SCH ×3 (01:11→22:08)
[2022-02-02 04:52] LABS: Basophils % 0.4 % (0.0-0.8); Eosinophils # 0.2 10*3/uL (0.0-0.87); Eosinophils % 3.4 % (0.00-10.9); Hematocrit 34.7 VOL% (42.0-52.0); Hemoglobin 10.4 GM/DL (14.0-18.0); Immature Granulocytes % 0.4 %; Immature Granulocytes Absolute 0.02 #; Lymphocytes # 0.5 10*3/uL (1.4-4.0); Mean Corpuscular Volume 97.7 FL (87-102); Monocytes # 0.7 10*3/uL (0.11-0.8); Monocytes % 11.8 % (1.7-12.7); Platelet Count 142 T/CUMM (130-400); Red Blood Count 3.55 MC/CUMM (3.8-5.5); Red Cell Distribution Width 14.9 % (9.3-17.3); White Blood Count 5.5 T/CUMM (4-12)
[2022-02-02 05:28] LABS: Blood Urea Nitrogen 15 MG/DL (7-18); Calcium 8.2 MG/DL (8.5-10.1); Carbon Dioxide 54 MMOL/L (21-32); Chloride 94 MMOL/L (98-107); Glucose 103 MG/DL (74-106); Osmolality,Calculated 283.1 MOS/KG (273-304); Sodium 142 MMOL/L (136-145)
[2022-02-02] MEDS ORDERED: POTASSIUM CHLORIDE 20 MEQ TABLET PO ONE ×2 (07:37→08:19)
[2022-02-02] MEDS: PANTOPRAZOLE 40 MG TABLET PO SCH (08:00)
[2022-02-02] MEDS: ASCORBIC ACID 500 MG TABLET PO SCH ×2 (08:01→22:08)
[2022-02-02] MEDS: ESCITALOPRAM 10 MG TABLET PO SCH (08:01)
[2022-02-02] MEDS: chlordiazePOXIDE 25 MG CAPSULE PO SCH ×2 (08:01→22:10)
[2022-02-02] MEDS: MAGNESIUM CHLORIDE 64 MG TABLET PO SCH ×2 (08:01→22:09)
[2022-02-02] MEDS: SPIRONOLACTONE 25 MG TABLET PO SCH (08:01)
[2022-02-02] MEDS: carvediloL 12.5 MG TABLET PO SCH ×2 (08:01→16:32)
[2022-02-02] MEDS: CHOLECALCIFEROL 5,000 UNIT TABLET PO SCH (08:01)
[2022-02-02] MEDS ORDERED: LIDOCAINE 2% TOP JELLY 20 ML VIAL INTRAURETH ONE (09:47)
[2022-02-02] MEDS ORDERED: SPIRONOLACTONE 25 MG TABLET PO ONE (13:00)
[2022-02-02] MEDS: SILODOSIN 8 MG CAPSULE PO SCH (21:00)
[2022-02-02] MEDS: DUTASTERIDE 0.5 MG CAPSULE PO SCH (22:09)
[2022-02-02] MEDS: ATORVASTATIN 40 MG TABLET PO SCH (22:10)
[2022-02-03 04:50] LABS: Basophils % 0.4 % (0.0-0.8); Eosinophils # 0.2 10*3/uL (0.0-0.87); Eosinophils % 4.4 % (0.00-10.9); Hematocrit 33.8 VOL% (42.0-52.0); Hemoglobin 10.2 GM/DL (14.0-18.0); Immature Granulocytes % 0.6 %; Immature Granulocytes Absolute 0.03 #; Lymphocytes # 0.6 10*3/uL (1.4-4.0); Lymphocytes % 12.2 % (21.2-54.2); Mean Corpuscular HGB Conc 30.2 GM/DL (32-36); Mean Corpuscular Volume 97.1 FL (87-102); Mean Platelet Volume 9.4 FL (9.6-12.0); Monocytes # 0.6 10*3/uL (0.11-0.8); Monocytes % 11.6 % (1.7-12.7); Neutrophils % 70.8 % (38.7-73.9); Platelet Count 122 T/CUMM (130-400); Red Blood Count 3.48 MC/CUMM (3.8-5.5); Red Cell Distribution Width 15.2 % (9.3-17.3); White Blood Count 5.2 T/CUMM (4-12)
[2022-02-03 05:16] LABS: Calcium 8.5 MG/DL (8.5-10.1); Osmolality,Calculated 283.3 MOS/KG (273-304); Potassium 3.2 MMOL/L (3.5-5.1)
[2022-02-03] MEDS ORDERED: POTASSIUM CHLORIDE 20 MEQ TABLET PO ONE (07:56)
[2022-02-03] MEDS ORDERED: SPIRONOLACTONE 50 MG TABLET PO SCH (09:00)
[2022-02-03] MEDS: FUROSEMIDE 40 MG/4 ML VIAL IV SCH ×2 (09:44→20:28)
[2022-02-03] MEDS: ASCORBIC ACID 500 MG TABLET PO SCH ×2 (09:45→20:28)
[2022-02-03] MEDS: chlordiazePOXIDE 25 MG CAPSULE PO SCH ×2 (09:45→20:28)
[2022-02-03] MEDS: MAGNESIUM CHLORIDE 64 MG TABLET PO SCH ×2 (09:45→20:28)
[2022-02-03] MEDS: PANTOPRAZOLE 40 MG TABLET PO SCH (09:45)
[2022-02-03] MEDS: ESCITALOPRAM 10 MG TABLET PO SCH (09:45)
[2022-02-03] MEDS: CHOLECALCIFEROL 5,000 UNIT TABLET PO SCH (09:46)
[2022-02-03] MEDS: ASPIRIN EC 81 MG TABLET PO SCH (09:46)
[2022-02-03] MEDS: carvediloL 12.5 MG TABLET PO SCH ×2 (09:46→16:23)
[2022-02-03] MEDS: metOLazone 5 MG TABLET PO SCH (11:20)
[2022-02-03] MEDS: APIXABAN 5 MG TABLET PO SCH ×2 (12:16→20:28)
[2022-02-03] MEDS ORDERED: SPIRONOLACTONE 50 MG TABLET PO ONE (13:07)
[2022-02-03] MEDS: ATORVASTATIN 40 MG TABLET PO SCH (20:28)
[2022-02-03] MEDS: DUTASTERIDE 0.5 MG CAPSULE PO SCH (20:28)
[2022-02-03] MEDS: SILODOSIN 8 MG CAPSULE PO SCH (22:26)
[2022-02-04 04:45] LABS: Basophils % 0.5 % (0.0-0.8); Eosinophils # 0.2 10*3/uL (0.0-0.87); Hematocrit 34.6 VOL% (42.0-52.0); Hemoglobin 10.7 GM/DL (14.0-18.0); Immature Granulocytes % 0.5 %; Immature Granulocytes Absolute 0.03 #; Lymphocytes # 0.8 10*3/uL (1.4-4.0); Lymphocytes % 13.7 % (21.2-54.2); Mean Corpuscular HGB Conc 30.9 GM/DL (32-36); Mean Corpuscular Volume 95.6 FL (87-102); Mean Platelet Volume 9.9 FL (9.6-12.0); Monocytes # 0.6 10*3/uL (0.11-0.8); Monocytes % 11.2 % (1.7-12.7); Neutrophils % 70.1 % (38.7-73.9); Platelet Count 142 T/CUMM (130-400); Red Blood Count 3.62 MC/CUMM (3.8-5.5); Red Cell Distribution Width 15.3 % (9.3-17.3); White Blood Count 5.5 T/CUMM (4-12)
[2022-02-04 05:06] LABS: Platelet Estimate Adequate
[2022-02-04 05:09] LABS: Calcium 8.8 MG/DL (8.5-10.1); Osmolality,Calculated 279.5 MOS/KG (273-304)
[2022-02-04] MEDS ORDERED: POTASSIUM CHLORIDE 20 MEQ TABLET PO ONE (08:07)
[2022-02-04] MEDS: FUROSEMIDE 40 MG/4 ML VIAL IV SCH ×2 (08:52→10:52)
[2022-02-04] MEDS: ASPIRIN EC 81 MG TABLET PO SCH (08:53)
[2022-02-04] MEDS: MAGNESIUM CHLORIDE 64 MG TABLET PO SCH (08:53)
[2022-02-04] MEDS: chlordiazePOXIDE 25 MG CAPSULE PO SCH (08:53)
[2022-02-04] MEDS: CHOLECALCIFEROL 5,000 UNIT TABLET PO SCH (08:53)
[2022-02-04] MEDS: ASCORBIC ACID 500 MG TABLET PO SCH (08:53)
[2022-02-04] MEDS: carvediloL 12.5 MG TABLET PO SCH (08:53)
[2022-02-04] MEDS: PANTOPRAZOLE 40 MG TABLET PO SCH (08:53)
[2022-02-04] MEDS: ESCITALOPRAM 10 MG TABLET PO SCH (08:54)
[2022-02-04] MEDS: metOLazone 5 MG TABLET PO SCH (08:54)
[2022-02-04] MEDS: APIXABAN 5 MG TABLET PO SCH (08:54)
[2022-02-04] MEDS ORDERED: SPIRONOLACTONE 100 MG TABLET PO SCH (09:00)
[2022-02-04 12:18] VITALS: BP 109/69
== END 2022-02-04 11:59 | disposition home health service (06) | DRG 291 ==
LOC: EDUNIT# → EDBD → N.ED 09:37 → SUATTDRO 14:43 → N.EDINP 14:43 → N.TELEN 15:33
PROVIDERS: ADMIT Internal Medicine; ATTEND Internal Medicine